=== PATIENT | male | born 1985 | race Caucasian/White ===

== ENCOUNTER 2016-10-06 12:35 | Emergency (ER) | payer OTHER ==
[~2016-10-06] VITALS: Ht 195.6 cm; Wt 66.7 kg
[~2016-10-06 12:35] MED LIST: ALPR-385 PO; ALPR1TAB3 PO; PHOS PO; PROM12.57 PO; ZINC1TAB PO; ZNTT/150 PO; [UNRECOGNIZED DRUG - OTHER] PO
[2016-10-06 12:36] VITALS: TEMP 36.8; Ht 195.6 cm; Wt 66.7 kg
--- NOTE | 2016-10-06 14:02 | DIAGNOSTIC IMAGING REPORT ---
RIGHT FOOT MIN 3 VIEWS ROUTINE CLINICAL HISTORY: Right foot pain status post trauma COMPARISON: None. DISCUSSION: No fractures or dislocations are visualized. IMPRESSION: No fractures identified. Electronically signed by: Uday Iraheta M.D. 10/06/2016 2:01 PM Dictated Date/Time: 10/06/2016 1:59 PM
[2016-10-06] MEDS ORDERED: OXYC1TAB3 PO (14:17)
--- NOTE | 2016-10-06 14:18 | EMERGENCY ROOM VISIT NOTE ---
History First contact with patient: 13:10 Chief Complaint: ANKLE PAIN Stated Complaint: SEVERE PAIN IN HEEL/ANKLE History of Present Illness The patient is a 31 year old male who presents to the Emergency Room via private vehicle with complaints of "severe pain and heel/ankle". The patient states that this morning around 2 AM, he woke up and accidentally struck his heel off of a dumbbell weight that was in his room. He notes severe pain in his right heel. He rates the pain as a 9/10. He is taken ibuprofen 5 without relief. Patient is worse with weightbearing. There is also an associated small cut that he notes minimal bleeding from. His tetanus is up-to-date. He denies any numbness or tingling in the distal extremity. Review of Systems A complete 6-point Review of Systems was discussed with the patient, with pertinent positives and negatives listed in the History of Present Illness. All remaining Review of Systems questions can be considered negative unless otherwise specified. Past Medical/Surgical History Medical Problems: (1) Anxiety State Nos (2) Avulsion fracture (3) Avulsion fracture (4) Depressive Disorder Nec (5) Esophageal Reflux (6) Finger pain (7) Pain of finger of right hand Surgical Problems: (1) Hx of wisdom tooth extraction (2) S/P appendectomy Family History No pertinent Social History Smoking Status: Former Smoker Alcohol Use: none Drug Use: none Marital Status: single Occupation Status: employed Current/Historical Medications Scheduled Alprazolam (Xanax), 0.25 MG PO QID Promethazine (Phenergan ), 6.25-12.5 MG PO BID Scheduled PRN Oxycodone Ir (Roxicodone Ir), 1-2 TAB PO Q4H PRN for Pain Allergies Coded Allergies: Erythromycin (Unverified Allergy, Unknown, UNKNOWN, 11/14/13) Penicillins (Unverified Allergy, Unknown, UNKN, 11/14/13) Sulfa Drugs (Unverified Allergy, Unknown, UNKN, 11/14/13) Physical Exam Vital Signs Date Time Temp Pulse Resp B/P (MAP) Pulse Ox O2 Delivery O2 Flow Rate FiO2 10/06/16 14:27 80 16 130/82 97 10/06/16 12:36 36.8 80 20 129/87 96 Room Air Physical Exam VITAL SIGNS - Vital signs and nursing notes were reviewed. Stable. GENERAL -31-year-old male appearing his stated age who is in no acute distress. Communicates well with provider and answers questions appropriately. SKIN - Without rashes. There is a small superficial laceration noted to the posterior right heel. No active bleeding. Appears to be already healing. EXTREMITIES - No clubbing or peripheral cyanosis. No pretibial edema present. There is tenderness to palpation overlying the right posterior heel region. He is neurovascularly intact in this region. No gross deformity to inspection. +5 /5 strength noted in UE/LE bilaterally. Medical Decision & Procedures ER Provider Diagnostic Interpretation: RIGHT FOOT MIN 3 VIEWS ROUTINE CLINICAL HISTORY: Right foot pain status post trauma COMPARISON: None. DISCUSSION: No fractures or dislocations are visualized. IMPRESSION: No fractures identified. Electronically signed by: Uday Iraheta M.D. 10/06/2016 2:01 PM Dictated Date/Time: 10/06/2016 1:59 PM Medical Decision Patient was seen and evaluated as above. After obtaining a thorough history and physical examination the decision was made to obtain radiographs of the affected region. Radiograph results as above. No heel fracture. I suspect the patient is likely bruised the region and has a contusion with associated small abrasion. He did drive today therefore declined pain medication here but did request some for home. The patient was queried in the [employer] drug monitoring system and no red flags were identified. He will be treated conservatively with crutches, made nonweightbearing a postop shoe. He was educated upon importance of follow-up, educated upon worrisome symptoms in which to return, had respiratory discharge, and was discharged home in good condition. In evaluation treatment this patient following differential diagnoses were entertained: Heel fracture, contusion, open fracture, among others. In the treatment of this patient controlled medication was utilized and therefore the [facility], Prescription Drug Monitoring Program website was utilized to look up this patient. No concerns were identified that would prohibit or alter my treatment decision. [place] Drug Monitoring Program Search Results: patient reviewed within database, no issues identified Impression Primary Impression: Foot pain Departure Information Dispostion Home / Self-Care Condition GOOD Prescriptions Oxycodone Ir (Roxicodone Ir) 5 Mg Tab 1-2 TAB PO Q4H Y for Pain, #15 TAB For Initial Treatment Prov: Lloyd Baker PA-C 10/06/16 Referrals Mike Vazquez D.O. (PCP) Rakesh Rodriguez D.O. Patient Instructions My [facility] Additional Instructions You have been treated in the Emergency Department for a foot/heel injury. You have received pain medicine in the emergency department which impairs your ability to operate a vehicle. It is illegal for you to drive after receiving these medicines. You have been prescribed Oxy IR to be used for pain control. This is a narcotic medication. You cannot drive or consume alcohol while on this medicine. This medicine should only be used for pain that cannot be controlled with over-the- counter pain medicines. For pain control, you can use the following [id number] medicines (if >12 yo): - Regular strength (200 mg/tab) Advil (ibuprofen) 1-2 tabs every 4-6 hours as needed. Do not exceed a dose of 3200 mg per day. If this is a recent injury (<24 hrs), ice can be applied to the area of pain for the first 3 days to help decrease pain and inflammation. You have been provided the number for an Orthopaedic Surgeon. You should call this number as soon as possible to establish a follow-up visit from today's Emergency Department visit. Keep the foot brace/splint in place until cleared by Orthopedics. Use the crutches you have been provided to keep ALL weight off of the ankle until weight bearing is tolerable. (Dr. Rodriguez) Return to the Emergency Department if your current symptoms worsen despite treatment course outlined above, or if you develop any of the following symptoms : intractable pain despite aforementioned treatment course or new onset of numbness or tingling of the foot. Please return to the emergency department with any new/concerning symptoms.
[2016-10-06 14:27] VITALS: BP 130/82; PULSE 80; O2SAT 97
== END 2016-10-06 14:28 | disposition home or self-care (01) ==
LOC: C.EDB 12:36 → C.EDD 14:28
DX: M79.671 Pain in right foot (principal); W22.8XXA Striking against or struck by other objects, initial encounter; Y92.003 Bedroom of unspecified non-institutional (private) residence as the place of occurrence of the external cause; F41.9 Anxiety disorder, unspecified; F32.9 Major depressive disorder, single episode, unspecified; K21.9 Gastro-esophageal reflux disease without esophagitis; Z87.891 Personal history of nicotine dependence; Z79.899 Other long term (current) drug therapy

== ENCOUNTER 2016-12-28 12:31 | Emergency (ER) | payer OTHER ==
[~2016-12-28] VITALS: Ht 195.6 cm; Wt 90.4 kg
[~2016-12-28 12:31] MED LIST changes: -ALPR-385 PO; +OXYC1TAB3 PO; -PHOS PO; -ZINC1TAB PO; -ZNTT/150 PO; -[UNRECOGNIZED DRUG - OTHER] PO
[2016-12-28 12:36] VITALS: BP 122/78; TEMP 36.7; Ht 195.6 cm; Wt 90.4 kg
[2016-12-28] MEDS ORDERED: AZITTAB PO (13:07)
[2016-12-28] MEDS ORDERED: OXYC1TAB3 PO (13:07)
--- NOTE | 2016-12-28 13:08 | EMERGENCY ROOM VISIT NOTE ---
ED Visit Note First contact with patient: 12:54 CHIEF COMPLAINT: Toothache HISTORY OF PRESENT ILLNESS: This 31-year-old male patient presented to the emergency department ambulatory with a progressive toothache for past one week. The patient believes it is coming from right lower tooth. The pain is now steady and severe and radiates to the face. The patient does a dentist appointment set up with [facility] him on Tuesday. They rate their pain a 7/10 and the ibuprofen and Tylenol they have been taking has not relieved the pain. Denies facial swelling or fever. The patient denies any discharge from the mouth. REVIEW OF SYSTEMS: A 6 system review of systems was completed with positives and pertinent negatives listed in the HPI. ALLERGIES: Erythromycin, penicillin, sulfa MEDICATIONS: Xanax PMH: Anxiety SOCIAL HISTORY: The patient does not smoke. PHYSICAL EXAM: Vitals are noted on the nurse's note and reviewed by myself. Vital signs stable. Temperature there is 6.7C orally. GENERAL: Is a 31-year- old male, in no acute distress, nondiaphoretic, well-developed well-nourished. Mouth: The right lower tooth is very carious and the gum is swollen and tender around it, without any discharge or signs of an abscess. The remainder of the pharynx and tonsils are without erythema, edema, or exudate. The airway is patent. There is no facial swelling, cervical or submandibular lymphadenopathy. The patient appears uncomfortable and in pain. The patient has overall fair dental hygiene. ED COURSE: The patient was seen and examined. Previous visits were reviewed. The patient does not have a fever. He is nontoxic in appearance. There is no facial swelling. There is no drainage from the mouth. He does have an appointment on Tuesday. He is allergic to multiple antibiotics and states that he usually does well with a Z-Sho for his dental pain. Problem List Medical Problems: (1) Anxiety State Nos Status: Chronic (2) Avulsion fracture Status: Resolved (3) Avulsion fracture Status: Resolved (4) Depressive Disorder Nec Status: Chronic (5) Esophageal Reflux Status: Chronic (6) Finger pain Status: Resolved (7) Pain of finger of right hand Status: Resolved Surgical Problems: (1) Hx of wisdom tooth extraction Status: Resolved (2) S/P appendectomy Status: Resolved Current/Historical Medications Scheduled Alprazolam (Xanax), 0.25 MG PO QID Azithromycin (Zithromax Z-Sho), 1 PKT PO UD Promethazine (Phenergan ), 6.25-12.5 MG PO BID Scheduled PRN Oxycodone Ir (Roxicodone Ir), 1 TAB PO Q6 PRN for Pain Allergies Coded Allergies: Erythromycin (Unverified Allergy, Unknown, UNKNOWN, 12/28/16) Penicillins (Unverified Allergy, Unknown, UNKN, 12/28/16) Sulfa Drugs (Unverified Allergy, Unknown, UNKN, 12/28/16) Vital Signs Date Time Temp Pulse Resp B/P (MAP) Pulse Ox O2 Delivery O2 Flow Rate FiO2 12/28/16 13:14 62 16 99 12/28/16 12:36 36.7 65 18 122/78 98 Room Air Departure Information Impression Primary Impression: Dental caries Dispostion Home / Self-Care Condition GOOD Prescriptions Oxycodone Ir (Roxicodone Ir) 5 Mg Tab 1 TAB PO Q6 Y for Pain, #12 TAB For Initial Treatment Prov: Nicky Kellogg PA-C 12/28/16 Azithromycin (ZITHROMAX Z-SHO) 250 Mg Tab 1 PKT PO UD, #1 PKT Prov: Nicky Kellogg PA-C 12/28/16 Referrals Mike Vazquez, D.O. (PCP) Patient Instructions My [facility] Additional Instructions Z-Sho as prescribed. OxyIR one tablet every 6 hours if needed for worse pain. Do not drink or drive while taking OxyIR . Followup with a dentist for definitive management of your tooth. Return with high fevers, worsening pain or swelling.
[2016-12-28 13:14] VITALS: PULSE 62; O2SAT 99
== END 2016-12-28 13:15 | disposition home or self-care (01) ==
LOC: C.EDB 12:35 → C.EDD 13:15
DX: K02.9 Dental caries, unspecified (principal); F41.9 Anxiety disorder, unspecified; F32.9 Major depressive disorder, single episode, unspecified; Z79.899 Other long term (current) drug therapy